=== PATIENT | male | born 1940 | race Caucasian/White ===

== ENCOUNTER 2018-11-03 07:21 | Day surgery (SDC) | payer BC ==
[2018-10-25 17:17] VITALS: BMI 27.3
[2018-11-03] MEDS ORDERED: MIDAZOLAM HCL 2 MG/2 ML SINGLE DOSE VIAL ONE (08:50)
[2018-11-03] MEDS ORDERED: ROPIVACAINE HCL 0.5% 30ML VIAL ONE (08:50)
[2018-11-03] MEDS ORDERED: BUPIVACAINE HCL 0.25% 125 MG/50 ML VIAL ONE (08:59)
[2018-11-03] MEDS ORDERED: PROPOFOL 20 ML ONE (09:53)
[2018-11-03] MEDS ORDERED: SUCCINYLCHOLINE CHLORIDE 200 MG/10 ML SYRINGE ONE (09:53)
[2018-11-03] MEDS ORDERED: BUPIVACAINE HCL/EPINEPHRINE/PF 30 ML VIAL IJ ONE (10:14)
[2018-11-03] MEDS ORDERED: ceFAZolin SODIUM 1 GM VIAL ONE (10:19)
[2018-11-03] MEDS ORDERED: oxyCODONE HCL 5 MG TABLET PO PRN ×3 (11:35→11:38)
[2018-11-03] MEDS ORDERED: oxyCODONE HCL 10 MG SUSTAINED ACTING TABLET PO ONE (11:35)
--- NOTE | 2018-11-03 11:35 | DS ---
Physical Examination Vital Signs: Vital Signs Temperature 98 F 11/03/18 07:40 Pulse Rate 72 11/03/18 07:40 Respiratory Rate 18 11/03/18 07:40 Blood Pressure 130/70 11/03/18 07:40 O2 Sat by Pulse Oximetry (%) 96 11/03/18 07:40 Discharge Summary Reason For Visit: RTC TEAR, RIGHT SHOULDER Condition: Good - Instructions Diet, Activity, Other Instructions: Post Operative Instructions: Shoulder Arthroscopy Dr Sheldon Paulino 1. Pain following a Shoulder Arthroscopy is variable and can be significant. Some patients will have more pain than others. You have been provided with a prescription for medication that contains a narcotic. You are not allowed to drive while on this medication. You should take Tylenol (Acetaminophen) in addition to the pain medication. 2. Apply ice to the shoulder for 15 minutes every hour. You may continue this for as many days as necessary. 3. You may find sleeping on an incline (reclining chair) to be more comfortable for the first few days. 4. You must remain in your sling at all times except when showering. The only exception to this is to allow you to stretch your elbow a few times a day to prevent your hand and forearm from swelling. 5. You are not to use your arm to reach for anything, lift anything or carry anything until instructed otherwise. 6. You may remove the bandages in 48 hours. You may shower at that point. 7. Place band-aids on the sutures after your shower.Do not put any creams or lotions on the incision until after the sutures are removed. 8. Please call the office to schedule a visit to have your sutures removed. 9. If for any reason you believe you may have an infection or are concerned, please feel free to call me. I can be reached through our office number 24 hours a day. 10. Please call our office with any questions; we will review the surgical findings during your post-operative visit. Disposition: HOME - Home Medications Comprehensive Discharge Medication List: Ambulatory Orders Aspirin [ASA -] 81 mg PO DAILY 10/25/18 Atorvastatin Ca [Lipitor] 40 mg PO HS 10/25/18 Clopidogrel Bisulfate [Plavix] 75 mg PO DAILY 10/25/18 Metformin HCl [Glucophage] 500 mg PO BID 10/25/18 Tamsulosin HCl [Flomax] 0.4 mg PO DAILY 10/25/18 Verapamil HCl [Calan Sr] 180 mg PO DAILY 10/25/18
--- NOTE | 2018-11-03 11:35 | OP ---
Operative Note - Note: Operative Date: 11/03/18 Pre-Operative Diagnosis: Right shoulder RCT Operation: RSA, decompression, and RCR Post-Operative Diagnosis: Same as Pre-op Surgeon: Sheldon Paulino Marker Delivery: Casper Anderson Anesthesiologist/[employer] ACTIVITIES CLERK: Luciano Leong Anesthesia: General Operative Report Dictated: Yes
[2018-11-03] MEDS ORDERED: PROMETHAZINE HCL 25 MG/1 ML VIAL IVPB PRN (11:38)
[2018-11-03] MEDS ORDERED: ONDANSETRON 4 MG/2 ML VIAL IVPUSH PRN (11:38)
[2018-11-03] MEDS ORDERED: oxyCODONE HCL 10 MG SUSTAINED ACTING TABLET ONE (12:07)
[2018-11-03 12:16] VITALS: TEMP 97.2
[2018-11-03 13:32] VITALS: BP 130/56; PULSE 66
--- NOTE | 2018-11-03 18:22 | SURG ---
Surgery Ventilator Specialist Note Ventilator Specialist: Casper Anderson PA-C Date of Service: 11/03/18 Diagnosis: Right shoulder Rotator Cuff Tear Procedure: Right Shoulder Arthroscopy, decompression, and Rotator Cuff Repair I was present for the entirety of the operative procedure. For further detail, please refer to operative report. Visit type - Case Type Case Type: Scheduled - New patient This patient is new to me today: Yes Date on this admission: 11/03/18
--- NOTE | 2018-11-08 17:02 | PATH ---
Surgical Pathology Report Patient Name: EZRA JOYCE Med. Rec. #: [id number] /Age/Gender: 1940 (Age: 78) / M Account: [id number] Location: [facility] Taken: 11/03/2018 Received: 11/03/2018 Reported: 11/08/2018 Physicians: Sheldon Paulino M.D. Specimen(s) Received RIGHT SHOULDER SHAVINGS Clinical History R rotator cuff tear Final Diagnosis SHOULDER SHAVINGS, RIGHT, ARTHROSCOPY, ROTATOR CUFF REPAIR: FRAGMENTS OF BENIGN CARTILAGE, BONE, DENSE FIBROCONNECTIVE TISSUE, ADIPOSE TISSUE, AND SKELETAL MUSCLE. Electronically Signed Lissette Otoole M.D. Gross Description Received in formalin, labeled "shavings, right shoulder" is a 2.5 x 2 x 0.3 cm aggregate of light yao and yellow-yao tissue. Painting And Coating Worker tissue submitted in one cassette. AE/11/08/2018 ebram/11/08/2018
== END 2018-11-03 13:00 | disposition home or self-care (01) ==
LOC: FASU 07:21
PROVIDERS: ATTEND Orthopaedic Surgery
PROC: 0RBJ4ZZ Excision of Right Shoulder Joint, Percutaneous Endoscopic Approach (ICD-10-PCS; 2018-11-03)
PROC: 0LQ14ZZ Repair Right Shoulder Tendon, Percutaneous Endoscopic Approach (ICD-10-PCS; principal; 2018-11-03 10:40)
PROC: 0RNJ4ZZ Release Right Shoulder Joint, Percutaneous Endoscopic Approach (ICD-10-PCS; 2018-11-03 10:40)
DX: M75.111 Incomplete rotator cuff tear or rupture of right shoulder, not specified as traumatic (principal); M24.111 Other articular cartilage disorders, right shoulder; M75.51 Bursitis of right shoulder
CPT/HCPCS: 82962; 88304-TC